=== PATIENT | female | born 2000 | race Caucasian/White ===

== ENCOUNTER → 2020-07-09 07:36 | Outpatient (CLI) | payer BC, SELFPAY ==
--- NOTE | 2020-07-09 | DI.US.S_ITS ---
PROCEDURE: US PELVIC COMPLETE INDICATIONS: ABNORMAL UTERINE AND VAGINAL BLEEDING TECHNIQUE: Real-time scanning was performed of the pelvic organs, with image documentation. Additional endovaginal scanning was necessary due to incomplete visualization of the adnexal and endometrial structures by transabdominal scanning. COMPARISON: None. FINDINGS: Uterus: Uterus is anteverted, normal in size at 3.0 x 3.9 x 8.1 cm. The endometrium measures 3.3 mm in combined thickness. Centrally positioned IUD. Ovaries: Normal on the right measuring 1.2 x 1.6 x 2.9 cm and normal on the left measuring 1.6 x 3.1 x 3.4 cm . A left ovarian cyst measures up to 2.5 cm in maximal dimension Other: No pathologic free abdominal or pelvic fluid. IMPRESSION: Centrally positioned IUD within the endometrial canal, which is normal in thickness. No uterine fibroid seen. 2.5 cm maximal dimension left ovarian cyst. No sign of ovarian torsion Dictated by: Candelario Spence M.D. on 07/09/2020 at 11:33 Approved by: Candelario Spence M.D. on 07/09/2020 at 11:35
== END ==
PROVIDERS: Family Provider Pediatrics; PCP Nurse Practitioner Family; Referring Provider Nurse Practitioner Family; Visit Provider Nurse Practitioner Family
DX: N93.9 Abnormal uterine and vaginal bleeding, unspecified (principal); N83.202 Unspecified ovarian cyst, left side; Z97.5 Presence of (intrauterine) contraceptive device
CPT/HCPCS: 76830; 76856

== ENCOUNTER → 2020-10-23 14:03 | Outpatient (CLI) | payer OTHER, SELFPAY ==
--- NOTE | 2020-10-23 14:08 | DI.RAD.S_ITS ---
PROCEDURE: XR CHEST 2V INDICATIONS: BRONCHITIS. TECHNIQUE: 2 views of the chest were acquired. COMPARISON: None. FINDINGS: Surgical changes and devices: None. Lungs and pleura: Lungs are clear. No pleural effusions or pneumothorax. Mediastinum: Mediastinal contours are normal. Heart size is normal. Bones and chest wall: No suspicious bony abnormalities. Soft tissues appear unremarkable. IMPRESSION: No acute cardiopulmonary disease. Dictated by: Britney Peres M.D. on 10/23/2020 at 15:59 Approved by: Britney Peres M.D. on 10/23/2020 at 15:59
== END ==
LOC: RAD 14:08
PROVIDERS: Family Provider Pediatrics; PCP Family Medicine; Referring Provider Family Medicine; Visit Provider Family Medicine
DX: J40 Bronchitis, not specified as acute or chronic (principal)
CPT/HCPCS: 71046